=== PATIENT | male | born 1990 | race Caucasian/White ===

== ENCOUNTER 2017-02-07 16:56 | Emergency (ER) | payer OTHER ==
[~2017-02-07] VITALS: Ht 182.9 cm; Wt 88.3 kg
[2017-02-07] MEDS ORDERED: NAPROXEN500 MG PO (21:01)
[2017-02-07 21:35] VITALS: BP 128/90
== END 2017-02-07 21:38 | disposition home or self-care (01) ==
LOC: EME 16:56
PROC: 2W3RX1Z Immobilization of Left Lower Leg using Splint (ICD-10-PCS; principal; 2017-02-07)
DX: S92.152A Displaced avulsion fracture (chip fracture) of left talus, initial encounter for closed fracture (principal); S93.402A Sprain of unspecified ligament of left ankle, initial encounter; X50.1XXA Overexertion from prolonged static or awkward postures, initial encounter; Y93.67 Activity, basketball; F17.200 Nicotine dependence, unspecified, uncomplicated
CPT/HCPCS: 73610; 73700; 99281; 99284